=== PATIENT | female | born 1985 | race Caucasian/White ===

== ENCOUNTER 2017-12-18 12:18 | Emergency (ER) | END 2017-12-18 15:45 | disposition home or self-care (01) ==

== ENCOUNTER 2018-05-23 13:46 | Emergency (ER) | END 2018-05-23 16:08 | disposition home or self-care (01) ==

== ENCOUNTER 2018-11-18 14:02 | Emergency (ER) | payer MEDICAID ==
[~2018-11-18] VITALS: Wt 90.0 kg
[~2018-11-18 14:02] MED LIST: CYCL10TA7 PO; IBUP-1542 PO; IBUP800T48 PO; NAPR-985 PO
[2018-11-18 14:05] VITALS: BP 125/63; PULSE 63; RESP 18
[2018-11-18] MEDS ORDERED: KETOROLAC 30 MG INJ IM STA (14:30)
[2018-11-18] MEDS ORDERED: CYCL10TA7 PO (14:34)
[2018-11-18] MEDS ORDERED: NAPR-985 PO (14:34)
--- NOTE | 2018-11-18 14:48 | ERD ---
ER Documentation Chief Complaint Chief Complaint BACK PAIN RAD LEFT LEG X 4 DAYS HPI 33-year-old female resents to the ED complaining of 3 days of bilateral lower back pain, rating down her left lower extremity. She denies any recent trauma or fall. 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 She denies any fever chills. Denies any loss of bowel bladder control. Denies any focal weakness. She is able to remain amatory. No other complaints. She has had the same pain several times before, relieved with ibuprofen and cyclobenzaprine. ROS All systems reviewed and are negative except as per history of present illness. Medications Home Meds Active Scripts Cyclobenzaprine Hcl* (Cyclobenzaprine Hcl*) 10 Mg Tablet, 10 MG PO TID for muscle spasms, #15 TAB Prov:FARIBA CHANEL-C 11/18/18 Naproxen* (Naprosyn*) 500 Mg Tablet, 500 MG PO BID PRN for PAIN AND/OR INFLAMMATION, #30 TAB Prov:FARIBA CHANEL-C 11/18/18 Cyclobenzaprine Hcl* (Cyclobenzaprine Hcl*) 10 Mg Tablet, 10 MG PO TID PRN for MUSCLE SPASMS, #15 TAB Prov:GERALD MATTHEWS 07/29/18 Ibuprofen* (Motrin*) 800 Mg Tab, 800 MG PO Q6H PRN for PAIN AND OR ELEVATED TEMP, #30 TAB Prov:GERALD MATTHEWS 07/29/18 Cyclobenzaprine Hcl* (Cyclobenzaprine Hcl*) 10 Mg Tablet, 10 MG PO QHS, #7 TAB Prov:AYSE MURRYC 05/23/18 Naproxen* (Naprosyn*) 500 Mg Tablet, 500 MG PO BID PRN for PAIN AND/OR INFLAMMATION, #30 TAB Prov:AYSE MURRYC 05/23/18 Cyclobenzaprine Hcl* (Cyclobenzaprine Hcl*) 10 Mg Tablet, 10 MG PO TID, #15 TAB Prov:NIKI BLANCAS PA-C 12/18/17 Ibuprofen* (Motrin*) 600 Mg Tab, 600 MG PO Q6, #30 TAB Prov:NIKI BLANCAS PA-C 12/18/17 Allergies Allergies: Coded Allergies: No Known Drug Allergy (Verified Allergy, Unknown, 12/18/17) PMhx/Soc History of Surgery: Yes ( X 2) Anesthesia Reaction: No Hx Neurological Disorder: No Hx Respiratory Disorders: No Hx Cardiac Disorders: No Hx Psychiatric Problems: No Hx Miscellaneous Medical Probl: No Hx Alcohol Use: No Hx Substance Use: No Hx Tobacco Use: No Smoking Status: Never smoker Physical Exam Vitals Vital Signs Date Temp Pulse Resp B/P (MAP) Pulse Ox O2 O2 Flow FiO2 Time Delivery Rate 11/18/18 98.1 63 18 125/63 99 14:05 (83) Physical Exam Const: No acute distress Head: Atraumatic Eyes: Normal Conjunctiva ENT: Normal External Ears, Nose and Mouth. Neck: Full range of motion. No meningismus. Resp: Clear to auscultation bilaterally Cardio: Regular rate and rhythm, no murmurs Abd: Soft, non tender, non distended. Normal bowel sounds Skin: No petechiae or rashes Back: No midline or flank tenderness. + Bilateral paralumbar spinal tenderness. + straight leg raise on the left. Ext: No cyanosis, or edema Neur: Awake and alert Psych: Normal Mood and Affect Results 24 hrs Current Medications Medications Dose Sig/Guilherme Start Time Status Last (Trade) Ordered Route PRN Stop Time Admin Dose Reason Admin Ketorolac 30 mg ONCE STAT 11/18/18 DC Tromethamine IM 14:30 (Toradol) 11/18/18 14:32 Procedures/MDM 33 yo female with hx of low back pain presents today with acute onchronic back pain status post lifting a heavy package for work. There are no focal n eurological deficits on physical exam. Advanced imaging was deferred as symptoms are likely musculoskeletal in origin. Her symptoms are most consistent with sciatica. I have low suspicion for epidural abscess, cauda equina, cord compression, spinal tumor/mass or compression fracture. She was given IM Toradol here with improvement of her sx. Patient will be treated conservatively with appropriate pain control. Recommend follow-up with her primary care provider or outpatient clinic for possible referral to an orthopedic center for physical therapy. Strict precautions were discussed. Departure Diagnosis: Primary Impression: Back pain Back pain location: low back pain Chronicity: unspecified Back pain laterality: unspecified Sciatica presence: with sciatica Sciatica laterality: sciatica of left side Qualified Codes: M54.42 - Lumbago with sciatica, left side Additional Impression: Sciatica Laterality: left Qualified Codes: M54.32 - Sciatica, left side Condition: Stable Patient Instructions: Back Exercises, Lumbar, Back Pain W/ Sciatica Referrals: [facility] Urgent Care 7 a.m.- 11 p.m. Every Day of the Week NO APPOINTMENT OR AUTHORIZATION NEEDED Additional Instructions: No heavy lifting as this could be worsening her symptoms. Take the medication naproxen for any back pain, if this does not work, then he can go ahead and take the Robaxin. Do not stay seated or lying down for long periods of time. He continued to have a lot of back pain, then you may need referral to physical therapist for your pain. Return here if any new or worsening symptoms. FARIBA CHANEL PA-C November 18, 2018 14:45
== END 2018-11-18 15:08 | disposition home or self-care (01) ==
LOC: FTE 14:02
DX: M54.42 Lumbago with sciatica, left side (principal)
CPT/HCPCS: 81025; 96372; J1885; Z7502